=== PATIENT | female | born 1965 | race Caucasian/White ===

== ENCOUNTER → 2020-09-20 12:35 | Outpatient (CLI) | payer OTHER, SELFPAY ==
--- NOTE | ~2020-09-20 | US_ITS ---
EXAMINATION: US pelvic complete DATE: 09/20/2020 13:06 INDICATION: Left adnexal pain Comparison:Left adnexal pain TECHNIQUE: Multiple transabdominal sonographic images of the pelvis performed. FINDINGS: The uterus measures 8 x 3.3 x 4.5 cm. The endometrial complex measures 4 mm. The right ovary measures 2.1 x 0.9 x 1.6 cm and the left ovary measures 1.7 x 1.1 x 2.1 cm. There ar e small follicles in each ovary. There is no free fluid in the pelvis. There are no abnormal masses seen on either side. IMPRESSION: 1. Normal pelvic ultrasound. Reviewed, dictated and finalized at location B.
== END ==
PROVIDERS: PCP Family Medicine; Visit Provider Nurse Practitioner
DX: R10.2 Pelvic and perineal pain (principal)
CPT/HCPCS: 76856

== ENCOUNTER 2021-04-14 10:07 | Emergency (ER) | payer OTHER, SELFPAY ==
--- NOTE | ~2021-04-14 | US_ITS ---
EXAMINATION: US pelvic complete w TV DATE: 04/14/2021 11:21 INDICATION: Abnormal uterine bleeding. TECHNIQUE: Multiple transabdominal and transvaginal sonographic images of the pelvis were obtained. COMPARISON: Ultrasound 09/20/2020 FINDINGS: TRANSABDOMINAL ULTRASOUND: The uterus measures 11.3 x 4.9 x 5.3 cm. There is no free fluid in the pelvis. TRANSVAGINAL ULTRASOUND: The endometrial complex measures 19 mm in thickness. The right ovary measures 1.9 x 2.1 x 1.5 cm. The left ovary measures 2.7 x 2.5 x 2.1 cm. There is normal vascular flow in the ovaries. IMPRESSION: 1. Thickened endometrial complex. The differential diagnosis includes endometrial hyperplasia, polyp, and carcinoma. Consider biopsy. Reviewed, dictated and finalized at location A. IMPRESSION: 1. Thickened endometrial complex. The differential diagnosis includes endometri al hyperplasia, polyp, and carcinoma. Consider biopsy.
[2021-04-14 10:11] VITALS: BP 161/77; PULSE 79; RESP 17; TEMP 36.3; O2SAT 98
[2021-04-14 10:42] LABS: Basophils Absolute Auto 0.1 K/mm3 (0.0-0.1); Basophils Percent Auto 0.8 % (0.2-1.2); Eosinophils Absolute Auto 0.1 K/mm3 (0-0.3); Eosinophils Percent Auto 1.3 % (0-4.4); Hematocrit 39.2 % (37.0-47.0); Immature Granulocyte Absolute 0.04 K/mm3 (0.00-0.031); Immature Granulocyte Percent A 0.4 % (0-0.5); Lymphocytes Absolute Auto 1.88 K/mm3 (0.9-3.2); Lymphocytes Percent Auto 19.2 % (18.3-44.2); Mean Corpuscular HGB Conc 33.2 g/dl (32-36); Mean Corpuscular Hemoglobin 31.3 pg (26-34); Mean Corpuscular Volume 94.2 fl (80-100); Mean Platelet Volume 9.7 fl (7.4-10.4); Monocytes Absolute Auto 0.7 K/mm3 (0.1-0.6); Monocytes Percent Auto 6.7 % (2.6-8.5); Neutrophils Percent Auto 71.6 % (45.5-73.1); Platelet Count Result 323 k/mm3 (150-375); Red Blood Count 4.16 M/mm3 (4.2-5.4); Red Cell Distribution Width 12.9 % (11.5-14.5); White Blood Count 9.8 K/mm3 (4.5-10.0)
--- NOTE | 2021-04-14 10:46 | ED.FEMALEGU ---
HPI - Female Genitourinary General Chief complaint: Vaginal Bleeding Stated complaint: vaginal bleeding Time Seen by Provider: 04/14/21 10:20 Source: patient Mode of arrival: ambulatory Limitations: no limitations History of Present Illness HPI Narrative: This is a 56-year-old female that presents the emergency department for heavy vaginal bleeding x11 days. Reports her last menstrual cycle was in November of this year. Reports she has had ongoing heavy bleeding over the last 11 days. Her dog sitter is Dr. Jones. Denies fever, abdominal pain, vomiting, or dysuria. Related Data Home Medications Medication Instructions Recorded Confirmed No Home Medications 04/14/21 04/14/21 Allergies Allergy/AdvReac Type Severity Reaction Status Date / Time ampicillin Allergy Intermediate rash Verified 04/14/21 10:20 latex Allergy Intermediate rash Verified 04/14/21 10:20 Review of Systems Review of Systems: Narrative: CONSTITUTIONAL: Denies fever GASTROINTESTINAL: Denies abdominal pain, nausea, vomiting GENITOURINARY: Denies dysuria All systems reviewed & are unremarkable except as noted in HPI and below PMFSH Past Medical History Medical History (Updated 04/14/21 @ 12:07 by Mora Hernandez PA-C) No active medical problems Social History Social History (Updated 04/14/21 @ 10:48 by Mora Hernandez PA-C) Substance use: never Gender identity (if verbalized by the patient): Female Exam Narrative: Exam Narrative: GENERAL: Well-appearing, well-nourished, and in no acute distress. HEAD: Normocephalic, atraumatic. EYES: EOMI. CHEST: Clear to auscultation. No respiratory distress. No wheezes rales or rhonchi HEART: Regular rate and rhythm. No murmur heard. Normal peripheral pulses. ABDOMEN: Soft, nontender, nondistended, normal active bowel sounds. EXTREMITIES: Normal range of motion. No edema. SKIN: Warm, dry, no rash. NEURO: No focal deficits. Alert and oriented x3. PSYCH: Normal mood and affect PELVIC: Normal external genitalia. Normal-appearing cervix. Small amount of dark red blood in the vaginal vault Course Consultations Consultation #1: Spoke with Dr. Jones about patient work-up who will follow up in clinic for hysteroscope. Date: 04/14/21 Time: 12:05 Vital Signs Vital signs: Vital Signs Temperature 97.3 F L 04/14/21 10:11 Pulse Rate 79 04/14/21 10:11 Respiratory Rate 17 04/14/21 10:11 Blood Pressure 161/77 H 04/14/21 10:11 Pulse Oximetry 98 04/14/21 10:11 Temperature 97.3 F L 04/14/21 10:11 Pulse Rate 79 04/14/21 10:11 Respiratory Rate 17 04/14/21 10:11 Blood Pressure 161/77 H 04/14/21 10:11 Pulse Oximetry 98 04/14/21 10:11 MDM - Female Genitourinary MDM Narrative Medical decision making narrative: Patient presents to the emergency department for abnormal uterine bleeding. Reports she has been on her cycle for the last 11 days. Her vitals are stable. Her hemoglobin is 13. Pelvic ultrasound shows a thickened endometrial complex. Consider biopsy. Normal appearing ovaries with normal vascular flow. Spoke with Dr. Jones about patient work-up who will follow up in clinic for hysteroscope. She is stable and felt appropriate for further outpatient evaluation. She was given warnings to return to the ER Lab Data Attestation: I reviewed the patient's lab results. Result diagrams: 04/14/21 10:35 Labs: Lab Results 04/14/21 04/14/21 04/14/21 Range/Units 10:34 10:35 10:35 WBC 9.8 (4.5-10.0) K/mm3 RBC 4.16 L (4.2-5.4) M/mm3 Hgb 13.0 (12.0-15.0) g/dL Hct 39.2 (37.0-47.0) % MCV 94.2 (80-100) fl MCH 31.3 (26-34) pg MCHC 33.2 (32-36) g/dl RDW 12.9 (11.5-14.5) % Plt Count 323 (150-375) k/mm3 MPV 9.7 (7.4-10.4) fl Immature Gran % (Auto) 0.4 (0-0.5) % Neut % (Auto) 71.6 (45.5-73.1) % Lymph % (Auto) 19.2 (18.3-44.2) % [place] % (Auto) 6.7 (2.6-8.5) % Eos % (Auto) 1.3 (0-4.4)
[2021-04-14 11:47] LABS: Prothrombin Time 13.7 Seconds (11.1-14.7)
[2021-04-14 11:48] LABS: Partial Thromboplastin Time 27.5 SECONDS (22.3-36.8)
[2021-04-14 12:19] VITALS: BP 168/75; PULSE 78; RESP 15; O2SAT 100
== END 2021-04-14 12:20 | disposition home or self-care (01) ==
PROVIDERS: Physician Assistant; Emergency Provider Emergency Medicine; PCP Family Medicine
DX: N93.8 Other specified abnormal uterine and vaginal bleeding (principal); N85.00 Endometrial hyperplasia, unspecified
CPT/HCPCS: 36415; 76830; 76856; 85025; 85610; 85730; 86850; 86900; 86901; 99284

== ENCOUNTER → 2022-02-09 09:32 | Outpatient (CLI) | payer OTHER, SELFPAY ==
--- NOTE | ~2022-02-09 | MMUS_ITS ---
EXAMINATION: MM diagnostic amena BI w adriane, US breast LT limited HISTORY: Palpable lump in the upper outer quadrant of the left breast TECHNIQUE: Craniocaudal, mediolateral, and mediolateral oblique 3-D tomosynthesis images of the belkys ts were performed and synthetic 2-D images were generated. CAD analysis was submitted and interpreted . High resolution limited left breast ultrasound was performed. COMPARISON: No prior mammogram is currently available for comparison BREAST PARENCHYMAL COMPOSITION: The breasts are heterogeneously dense, which may obscure small masses . FINDINGS: MAMMOGRAPHIC FINDINGS: There is no evidence of suspicious mass, calcification, or architectural distortion in either breast to suggest malignancy. No definite mammographic correlate is identified for the reported palpable abn ormality of the left breast. ULTRASOUND: There is an approximately 6 mm x 4 mm oval, hypoechoic mass with indistinct margins, no posterior fea tures, and no internal vascularity at the 3:00 location 6 cm from the nipple. Additional simple and c omplicated cysts are noted in the upper outer quadrant of the breast. IMPRESSION: 1. Indeterminate left breast mass at the 3:00 location 6 cm from the nipple. 2. Ultrasound-guided biopsy is recommended. BI-RADS category 4, suspicious findings. Reviewed, dictated and finalized at location A. IMPRESSION: 1. Indeterminate left breast mass at the 3:00 location 6 cm from the nipple. 2. Ultrasound-guided biopsy is recommended. BI-RADS category 4, suspicious findings.
== END ==
PROVIDERS: PCP Family Medicine; Visit Provider Nurse Practitioner
DX: N63.20 Unspecified lump in the left breast, unspecified quadrant (principal); R92.8 Other abnormal and inconclusive findings on diagnostic imaging of breast
CPT/HCPCS: 76642; 77061; 77062; 77065; 77066; G0279